=== PATIENT | male | born 1985 | race Caucasian/White ===

== ENCOUNTER → 2018-12-04 10:01 | Outpatient (CLI) | payer OTHER, MEDICAID, SELFPAY ==
[2018-12-04 11:17] LABS: C-Reactive Protein Quant < 0.5 mg/dL (<1.0)
[2018-12-04 11:21] LABS: Erythrocyte Sedimentation Rate 2 MM/HR (0-15)
== END ==
PROVIDERS: Visit Provider Physician Assistant
DX: R51 Headache (principal)
CPT/HCPCS: 36415; 85651; 86140

== ENCOUNTER 2018-12-04 10:27 | Emergency (ER) | payer OTHER, MEDICAID, SELFPAY ==
[2018-12-04 10:36] VITALS: BP 111/67; PULSE 52; RESP 13; TEMP 36.1; O2SAT 100
--- NOTE | 2018-12-04 11:02 | ED.HA ---
HPI - Headache <CLEMENTINE Reece - Last Filed: 12/05/18 00:13> General Chief Complaint: Headache Stated Complaint: migrane Time Seen by Provider: 12/04/18 11:01 Source: patient and family Mode of arrival: ambulatory Limitations: no limitations History of Present Illness HPI Narrative: This is a 33-year-old male, nonsmoker, who presents with left-sided headache every other day for last week. The patient was initially seen at walk-in clinic this morning had received IM injection of Toradol 15 mg and Tylenol 1000 mg. Had drawn ESR and CRP them refer to ED for further evaluation. The patient reports he had similar headaches before but not as severe. Reports mild photophobia, mild nausea, tender to touch on left side face. He reports at times his left temporal area felt swollen and bruise to his eyes or temporal area. When the headache is very severe he likes to rest in a dark room. He denies fever, chills, vomiting, rash, vision change. The patient has been taking 600 mg of ibuprofen, Tylenol 1000 mg around the clock with a headache. The patient denies his or family history of arthritis, aneurysm, or migraine headache. Related Data Home Medications Medication Instructions Recorded Confirmed acetaminophen 500 mg tablet 1,000 mg PO Q6H PRN 12/04/18 12/04/18 Previous Rx's Medication Instructions Recorded tramadol 50 mg PO DAILY #7 tab 12/04/18 Allergies Allergy/AdvReac Type Severity Reaction Status Date / Time No Known Drug Allergies Allergy Verified 12/04/18 09:46 Review of Systems <CLEMENTINE Reece - Last Filed: 12/05/18 00:13> Review of Systems General: See HPI HEENT: Reports L side headache, intermitent swelling and bruise to L temporal area. Denies sinus pain, ear pain, sore throat, difficulty swallowing, dizziness. Respiratory: Denies dyspnea, cough, wheezing, hemoptysis, sputum. Cardiovascular: Denies chest pain, palpitations, orthopnea, edema. Gastrointestinal: Mild nausea, vomiting, abdominal pain, diarrhea, constipation, melena. : Denies dysuria, frequency, incontinence, hematuria, urinary retention. Musculoskeletal: Denies weakness, joint pain or bony pain. Skin: Denies rash, skin lesions, or other. Neurologic: Denies weakness, numbness, change in speech, confusion, seizures, incoordination. Psychiatric: No concerning psychosocial issues. 12-point review of systems is negative except for those stated above. PFSH <CLEMENTINE Reece - Last Filed: 12/05/18 00:13> Medical History No significant past surgical history (Acute) Patient denies medical problems (Acute) Social History Smoking Status: Never smoker Social History Smoking Status: Never smoker Exam <CLEMENTINE Reece - Last Filed: 12/05/18 00:13> Narrative Exam Narrative: GEN: Alert, oriented x 3, well appearing and nourished, and in no acute distress. Neck: Trachea in midline. No JVD, non-tender without lymphadenopathy. No masses or thyroid megaly. Supple, non-tender and no meningeal signs. CARDIAC: Normal regular rate and rhythm without murmurs, gallops, or rubs. No chest wall tenderness. No peripheral edema, cyanosis or pallor. Capillary refill is less than 2 seconds. RESPIRATORY: Lungs are cleat to auscultate bilaterally. No cough, wheezes, rales, or rhonchi. No stridor, respiratory distress, increase work of breathing, or accessary muscle used. ABD: Abdomen soft, nontender and non-distended. No guarding or rebound tenderness to palpate. Bowel sounds are normal in all 4 quadrants. There is no palpable masses or organomegaly. EXT: Full painless ROM of all extremities with no loss of sensation, strength, effusion or edema. SKIN: Warm, dry, normal color for patient. No erythema, lesions or rash. NEUROLOGICAL: Alert and oriented to place, time and person. Sensation and motor function intact bilaterally. No facial droops, dysphasia, ataxia. PSYCHIATRIC: Good judgement and reason, without hallucinations, flat affect or no abnormal behaviors during the examination. Initial Vital Signs Initial Vital Signs: Vital Signs Temperature 97 F L 12/04/18 10:36 Pulse Rate 52 L 12/04/18 10:36 Respiratory Rate 13 12/04/18 10:36 Blood Pressure 111/67 12/04/18 10:36 Pulse Oximetry 100 12/04/18 10:36 [facility] Head: normal to inspection, normocephalic, atraumatic, No scalp lesion, No scalp tenderness, temporal artery tenderness and No periorbital ecchymosis Ears: hearing grossly normal bilaterally, external ears normal and TM's normal bilaterally Nose: external nose normal, nares normal and nasal mucous membranes and turbinates normal Face and sinus: normal facial exam, sinuses nontender and face symmetric Mouth: oral mucosae normal, tongue normal, oropharynx normal, moist mucous membranes and No trismus Teeth and gingiva: dentition normal Throat: posterior oropharynx normal, tonsils normal, uvula midline and no postnasal drainage <William Grant DO - Last Filed: 12/05/18 19:23> Initial Vital Signs Initial Vital Signs: Vital Signs Temperature 97 F L 12/04/18 10:36 Pulse Rate 52 L 12/04/18 10:36 Respiratory Rate 13 12/04/18 10:36 Blood Pressure 111/67 12/04/18 10:36 Pulse Oximetry 100 12/04/18 10:36 Course <CLEMENTINE Reece - Last Filed: 12/05/18 00:13> Orders Ordered: Discontinued Medications Ketorolac Tromethamine (Toradol) 15 mg IV NOW ONE Stop: 12/04/18 12:58 Last Admin: 12/04/18 13:13 Dose: 15 mg Tramadol HCl (Ultram) 50 mg PO NOW ONE Stop: 12/04/18 12:58 Last Admin: 12/04/18 13:13 Dose: 50 mg Vital Signs - 8 hr 12/04/18 10:36 Temperature 97 F L Pulse Rate 52 L Respiratory Rate 13 Blood Pressure 111/67 Pulse Oximetry 100 <William Grant DO - Last Filed: 12/05/18 19:23> Orders Ordered: Discontinued Medications Ketorolac Tromethamine (Toradol) 15 mg IV NOW ONE Stop: 12/04/18 12:58 Last Admin: 12/04/18 13:13 Dose: 15 mg Tramadol HCl (Ultram) 50 mg PO NOW ONE Stop: 12/04/18 12:58 Last Admin: 12/04/18 13:13 Dose: 50 mg Vital Signs - 8 hr 12/04/18 10:36 Temperature 97 F L Pulse Rate 52 L Respiratory Rate 13 Blood Pressure 111/67 Pulse Oximetry 100 MDM - Headache <CLEMENTINE Reece - Last Filed: 12/05/18 00:13> Differential Diagnosis Differential diagnosis: Likely migraine, headache and other (temporal arteritis , trigeminal neurolgia, ) Medical Records Attestation: I reviewed the patient's medical records. Lab Data Attestation: I reviewed the patient's lab results. Result diagrams: 12/04/18 11:05 12/04/18 11:05 Lab Results 12/04/18 12/04/18 Range/Units 11:05 11:05 WBC 4.2 L (4.5-11.0) X10^3/uL RBC 4.53 (4.5-5.9) X10^6/uL Hgb 14.1 (13.5-17.5) g/dL Hct 40.7 L (41-53) % MCV 90.0 (80-100) fL MCH 31.2 (26-34) PG MCHC 34.6 (30-36) % RDW 13.4 (11.6-14.8) % Plt Count 247 (150-400) X10^3/uL Neut % (Auto) 58.9 (50-75) % Lymph % (Auto) 34.0 (25-40) % [place] % (Auto) 5.6 (3-14) % Eos % (Auto) 1.2 L (2-4) % Baso % (Auto) 0.3 (0-2) % Neut # (Auto) 2500 (7328-0327) /uL Lymph # (Auto) 1400 (4215-2104) /uL [place] # (Auto) 200 (0-900) /uL Eos # (Auto) 0 (0-450) /uL Baso # (Auto) 0 (0-100) /uL Sodium 139 (137-145) mmol/L Potassium 4.1 (3.4-5.1) mmol/L Chloride 104 (98-107) mmol/L Carbon Dioxide 26 (22-32) mmol/L BUN 16 (9-20) mg/dL Creatinine 0.80 (0.66-1.25) mg/dL Estimated GFR > 60.0 (>60) mL/min BUN/Creatinine Ratio 20.0 (6-22) Glucose 107 H (70-100) mg/dL Calcium 9.5 (8.4-10.2) mg/dL MDM Narrative Medical decision making narrative: This is a 33 year old male was referred from walk-in clinic to ED for left-sided headache evaluation. He was initially evaluated and treated with Toradol 15 mg IM injection and Tylenol 1000 mg. CRP and ESR were drawn at the clinic. The patient has associated symptoms as left temporal area tenderness for a week every other day. Self-reported swelling in temporal area and bruise on left eye. He he had similar type of headache before but not as severe as this and tenderness to left side temporal with the swelling and bruise are new. Patient also had mild nausea, photophobia. His neurological symptoms were intact. There was tenderness to palpation left temporal but no bruises or swelling were noted during exam. Patient reports his headache was about 5/10 during initial encounter. He does not endorse family history of arthritis, migraine headache, aneurysm. The ESR and CRP came back within normal limit. CBC and BMP were unremarkable. The patient was medicated with a additional Toradol 15 mg IV and tramadol 50 mg p.o. The findings were shared with the patient and his family. He currently does not have primary healthcare manager. I discussed in length that he needs primary care provider for re-evaluation of his headache and possible a referral to headache specialist. I discussed in length the Tramadol is not for long-term use since this is a narcotic medication and patient may have rebound headaches. Patient was able to rest after 2 medication treatment and his headache had improved. All questions were answered and the patient and family agree with the treatment plan. [facility] health resources contact number has been provided. <William Grant, DO - Last Filed: 12/05/18 19:23> Lab Data Lab Results 12/04/18 12/04/18 Range/Units 11:05 11:05 WBC 4.2 L (4.5-11.0) X10^3/uL RBC 4.53 (4.5-5.9) X10^6/uL Hgb 14.1 (13.5-17.5) g/dL Hct 40.7 L (41-53) % MCV 90.0 (80-100) fL MCH 31.2 (26-34) PG MCHC 34.6 (30-36) % RDW 13.4 (11.6-14.8) % Plt Count 247 (150-400) X10^3/uL Neut % (Auto) 58.9 (50-75) % Lymph % (Auto) 34.0 (25-40) % [place] % (Auto) 5.6 (3-14) % Eos % (Auto) 1.2 L (2-4) % Baso % (Auto) 0.3 (0-2) % Neut # (Auto) 2500 (4676-6110) /uL Lymph # (Auto) 1400 (9891-9773) /uL [place] # (Auto) 200 (0-900) /uL Eos # (Auto) 0 (0-450) /uL Baso # (Auto) 0 (0-100) /uL Sodium 139 (137-145) mmol/L Potassium 4.1 (3.4-5.1) mmol/L Chloride 104 (98-107) mmol/L Carbon Dioxide 26 (22-32) mmol/L BUN 16 (9-20) mg/dL Creatinine 0.80 (0.66-1.25) mg/dL Estimated GFR > 60.0 (>60) mL/min BUN/Creatinine Ratio 20.0 (6-22) Glucose 107 H (70-100) mg/dL Calcium 9.5 (8.4-10.2) mg/dL Discharge Plan Departure Patient Disposition: Home Clinical Impression: Headache Qualifiers: Headache type: unspecified Headache chronicity pattern: unspecified pattern Intractability: not intractable Qualified Code(s): R51 - Headache Discharge Date/Time: 12/04/18 14:49 Interventions: ED Discharge Assessment Last Done: 12/04/18 14:49 Instructions: DI for Headache Activity Restrictions/Additional Instructions: You have been diagnosed with [ headache. Your blood tests look good for inflammatory markers, chemistry and complete blood count]. What to do: *Take your medications as directed. Please continue to take Tylenol and/or Motrin as needed for your headache and use Tramadol as needed for severe headache. This medication causes drowsiness so please do not drive, drink alcohol, operate heavy equipments. *Follow up with your primary care provider in 2-3 days, call for an appointment. Let them know you were seen in the ED and that we asked you to be seen in follow up. *Return to ED if you have any new, worsening, or concerning symptoms, such as [vision change, severe headache, fever, chills, unable to tolerate fluid, weakness to extremities, speech difficulty, chest pain, breathing difficulty, any acute concerns]. Prescriptions: New tramadol 50 mg tablet 50 mg PO DAILY Qty: 7 RF: 0 No Action acetaminophen [Tylenol Extra Strength] 500 mg tablet 1,000 mg PO Q6H PRN (Reason: pain) RF: 0 Referrals: [facility] [Outside] <William Grant DO - Last Filed: 12/05/18 19:23> Cosign ED Attending Yue Attestation: I was available for consultation during this patient's emergency department encounter
[2018-12-04 12:20] VITALS: BP 110/72; PULSE 50; RESP 15; O2SAT 100
[2018-12-04 13:12] LABS: Add Manual Diff / Slide Review NO; Basophils Absolute Auto 0 /uL (0-100); Basophils Percent Auto 0.3 % (0-2); Eosinophils Absolute Auto 0 /uL (0-450); Eosinophils Percent Auto 1.2 % (2-4); Hematocrit 40.7 % (41-53); Hemoglobin 14.1 g/dL (13.5-17.5); Lymphocytes Absolute Auto 1400 /uL (1100-4500); Mean Corpuscular HGB Conc 34.6 % (30-36); Mean Corpuscular Hemoglobin 31.2 PG (26-34); Monocytes Absolute Auto 200 /uL (0-900); Monocytes Percent Auto 5.6 % (3-14); Neutrophils Absolute Auto 2500 /uL (1500-7000); Neutrophils Percent Auto 58.9 % (50-75); Platelet Count 247 X10^3/uL (150-400); Red Blood Cell Count 4.53 X10^6/uL (4.5-5.9); Red Cell Distribution Width 13.4 % (11.6-14.8); White Blood Cell Count 4.2 X10^3/uL (4.5-11.0)
[2018-12-04] MEDS: TRAMADOL 50 MG TABLET PO (13:13)
[2018-12-04] MEDS: KETOROLAC 60 MG/2 ML VIAL 15 MG IV (13:13)
[2018-12-04 13:18] LABS: Blood Urea Nitrogen 16 mg/dL (9-20); Calcium 9.5 mg/dL (8.4-10.2); Carbon Dioxide 26 mmol/L (22-32); Chloride 104 mmol/L (98-107); Estimated Glomerular Filt Rate > 60.0 mL/min (>60); Glucose 107 mg/dL (70-100); HEMOLYSIS < 15 (0-50); Potassium 4.1 mmol/L (3.4-5.1); Sodium 139 mmol/L (137-145)
--- NOTE | 2018-12-05 00:10 | ED_ITS ---
HPI - Headache <CLEMENTINE Reece - Last Filed: 12/05/18 00:13> General Chief Complaint: Headache Stated Complaint: migrane Time Seen by Provider: 12/04/18 11:01 Source: patient and family Mode of arrival: ambulatory Limitations: no limitations History of Present Illness HPI Narrative: This is a 33-year-old male, nonsmoker, who presents with left- sided headache every other day for last week. The patient was initially seen at walk-in clinic this morning had received IM injection of Toradol 15 mg and Tylenol 1000 mg. Had drawn ESR and CRP them refer to ED for further evaluation. The patient reports he had similar headaches before but not as severe. Reports mild photophobia, mild nausea, tender to touch on left side face. He reports at times his left temporal area felt swollen and bruise to his eyes or temporal area. When the headache is very severe he likes to rest in a dark room. He denies fever, chills, vomiting, rash, vision change. The patient has been taking 600 mg of ibuprofen, Tylenol 1000 mg around the clock with a headache. The patient denies his or family history of arthritis, aneurysm, or migraine headache. Related Data Home Medications Medication Instructions Recorded Confirmed acetaminophen 500 mg tablet 1,000 mg PO Q6H PRN 12/04/18 12/04/18 Previous Rx's Medication Instructions Recorded tramadol 50 mg PO DAILY #7 tab 12/04/18 Allergies Allergy/AdvReac Type Severity Reaction Status Date / Time No Known Drug Allergies Allergy Verified 12/04/18 09:46 Review of Systems <CLEMENTINE Reece - Last Filed: 12/05/18 00:13> Review of Systems General: See HPI HEENT: Reports L side headache, intermitent swelling and bruise to L temporal area. Denies sinus pain, ear pain, sore throat, difficulty swallowing, d izziness. Respiratory: Denies dyspnea, cough, wheezing, hemoptysis, sputum. Cardiovascular: Denies chest pain, palpitations, orthopnea, edema. Gastrointestinal: Mild nausea, vomiting, abdominal pain, diarrhea, constipation, melena. : Denies dysuria, frequency, incontinence, hematuria, urinary retention. Musculoskeletal: Denies weakness, joint pain or bony pain. Skin: Denies rash, skin lesions, or other. Neurologic: Denies weakness, numbness, change in speech, confusion, seizures, incoordination. Psychiatric: No concerning psychosocial issues. 12-point review of systems is negative except for those stated above. PFSH <CLEMENTINE Reece - Last Filed: 12/05/18 00:13> Medical History No significant past surgical history (Acute) Patient denies medical problems (Acute) Social History Smoking Status: Never smoker Social History Smoking Status: Never smoker Exam <CLEMENTINE Reece - Last Filed: 12/05/18 00:13> Narrative Exam Narrative: GEN: Alert, oriented x 3, well appearing and nourished, and in no acute distress. Neck: Trachea in midline. No JVD, non-tender without lymphadenopathy. No masses or thyroid megaly. Supple, non-tender and no meningeal signs. CARDIAC: Normal regular rate and rhythm without murmurs, gallops, or rubs. No chest wall tenderness. No peripheral edema, cyanosis or pallor. Capillary refill is less than 2 seconds. RESPIRATORY: Lungs are cleat to auscultate bilaterally. No cough, wheezes, rales, or rhonchi. No stridor, respiratory distress, increase work of breathing, or accessary muscle used. ABD: Abdomen soft, nontender and non-distended. No guarding or rebound tenderness to palpate. Bowel sounds are normal in all 4 quadrants. There is no palpable masses or organomegaly. EXT: Full painless ROM of all extremities with no loss of sensation, strength, effusion or edema. SKIN: Warm, dry, normal color for patient. No erythema, lesions or rash. NEUROLOGICAL: Alert and oriented to place, time and person. Sensation and motor function intact bilaterally. No facial droops, dysphasia, ataxia. PSYCHIATRIC: Good judgement and reason, without hallucinations, flat affect or no abnormal behaviors during the examination. Initial Vital Signs Initial Vital Signs: Vital Signs Temperature 97 F L 12/04/18 10:36 Pulse Rate 52 L 12/04/18 10:36 Respiratory Rate 13 12/04/18 10:36 Blood Pressure 111/67 12/04/18 10:36 Pulse Oximetry 100 12/04/18 10:36 [facility] Head: normal to inspection, normocephalic, atraumatic, No scalp lesion, No scalp tenderness, temporal artery tenderness and No periorbital ecchymosis Ears: hearing grossly normal bilaterally, external ears normal and TM's normal bilaterally Nose: external nose normal, nares normal and nasal mucous membranes and turbinates normal Face and sinus: normal facial exam, sinuses nontender and face symmetric Mouth: oral mucosae normal, tongue normal, oropharynx normal, moist mucous membranes and No trismus Teeth and gingiva: dentition normal Throat: posterior oropharynx normal, tonsils normal, uvula midline and no postnasal drainage <DO Diomedes Rebolledo Last Filed: 12/05/18 19:23> Initial Vital Signs Initial Vital Signs: Vital Signs Temperature 97 F L 12/04/18 10:36 Pulse Rate 52 L 12/04/18 10:36 Respiratory Rate 13 12/04/18 10:36 Blood Pressure 111/67 12/04/18 10:36 Pulse Oximetry 100 12/04/18 10:36 Course <CLEMENTINE Reece - Last Filed: 12/05/18 00:13> Orders Ordered: Discontinued Medications Ketorolac Tromethamine (Toradol) 15 mg IV NOW ONE Stop: 12/04/18 12:58 Last Admin: 12/04/18 13:13 Dose: 15 mg Tramadol HCl (Ultram) 50 mg PO NOW ONE Stop: 12/04/18 12:58 Last Admin: 12/04/18 13:13 Dose: 50 mg Vital Signs - 8 hr 12/04/18 10:36 Temperature 97 F L Pulse Rate 52 L Respiratory Rate 13 Blood Pressure 111/67 Pulse Oximetry 100 <William Grant DO - Last Filed: 12/05/18 19:23> Orders Ordered: Discontinued Medications Ketorolac Tromethamine (Toradol) 15 mg IV NOW ONE Stop: 12/04/18 12:58 Last Admin: 12/04/18 13:13 Dose: 15 mg Tramadol HCl (Ultram) 50 mg PO NOW ONE Stop: 12/04/18 12:58 Last Admin: 12/04/18 13:13 Dose: 50 mg Vital Signs - 8 hr 12/04/18 10:36 Temperature 97 F L Pulse Rate 52 L Respiratory Rate 13 Blood Pressure 111/67 Pulse Oximetry 100 MDM - Headache <CLEMENTINE Reece - Last Filed: 12/05/18 00:13> Differential Diagnosis Differential diagnosis: Likely migraine, headache and other (temporal arteritis , trigeminal neurolgia, ) Medical Records Attestation: I reviewed the patient's medical records. Lab Data Attestation: I reviewed the patient's lab results. Result diagrams: 12/04/18 11:05 12/04/18 11:05 Lab Results 12/04/18 12/04/18 Range/Units 11:05 11:05 WBC 4.2 L (4.5-11.0) X10^3/uL RBC 4.53 (4.5-5.9) X10^6/uL Hgb 14.1 (13.5-17.5) g/dL Hct 40.7 L (41-53) % MCV 90.0 (80-100) fL MCH 31.2 (26-34) PG MCHC 34.6 (30-36) % RDW 13.4 (11.6-14.8) % Plt Count 247 (150-400) X10^3/uL Neut % (Auto) 58.9 (50-75) % Lymph % (Auto) 34.0 (25-40) % [place] % (Auto) 5.6 (3-14) % Eos % (Auto) 1.2 L (2-4) % Baso % (Auto) 0.3 (0-2) % Neut # (Auto) 2500 (1862-9745) /uL Lymph # (Auto) 1400 (1063-0293) /uL [place] # (Auto) 200 (0-900) /uL Eos # (Auto) 0 (0-450) /uL Baso # (Auto) 0 (0-100) /uL Sodium 139 (137-145) mmol/L Potassium 4.1 (3.4-5.1) mmol/L Chloride 104 (98-107) mmol/L Carbon Dioxide 26 (22-32) mmol/L BUN 16 (9-20) mg/dL Creatinine 0.80 (0.66-1.25) mg/dL Estimated GFR > 60.0 (>60) mL/min BUN/Creatinine Ratio 20.0 (6-22) Glucose 107 H (70-100) mg/dL Calcium 9.5 (8.4-10.2) mg/dL MDM Narrative Medical decision making narrative: This is a 33 year old male was referred from walk-in clinic to ED for left-sided headache evaluation. He was initially evaluated and treated with Toradol 15 mg IM injection and Tylenol 1000 mg. CRP and ESR were drawn at the clinic. The patient has associated symptoms as left temporal area tenderness for a week every other day. Self-reported swelling in temporal area and bruise on left eye. He he had similar type of headache before but not as severe as this and tenderness to left side temporal with the swelling and bruise are new. Patient also had mild nausea, photophobia. His neurological symptoms were intact. There was tenderness to palpation left temporal but no bruises or swelling were noted during exam. Patient reports his headache was about 5/10 during initial encounter. He does not endorse family history of arthritis, migraine headache, aneurysm. The ESR and CRP came back within normal limit. CBC and BMP were unremarkable. The patient was medicated with a additional Toradol 15 mg IV and tramadol 50 mg p.o. The findings were s hared with the patient and his family. He currently does not have primary care transitions manager. I discussed in length that he needs primary care provider for re- evaluation of his headache and possible a referral to headache specialist. I discussed in length the Tramadol is not for long-term use since this is a narcotic medication and patient may have rebound headaches. Patient was able to rest after 2 medication treatment and his headache had improved. All questions were answered and the patient and family agree with the treatment plan. [facility] health resources contact number has been provided. <William Grant, DO - Last Filed: 12/05/18 19:23> Lab Data Lab Results 12/04/18 12/04/18 Range/Units 11:05 11:05 WBC 4.2 L (4.5-11.0) X10^3/uL RBC 4.53 (4.5-5.9) X10^6/uL Hgb 14.1 (13.5-17.5) g/dL Hct 40.7 L (41-53) % MCV 90.0 (80-100) fL MCH 31.2 (26-34) PG MCHC 34.6 (30-36) % RDW 13.4 (11.6-14.8) % Plt Count 247 (150-400) X10^3/uL Neut % (Auto) 58.9 (50-75) % Lymph % (Auto) 34.0 (25-40) % [place] % (Auto) 5.6 (3-14) % Eos % (Auto) 1.2 L (2-4) % Baso % (Auto) 0.3 (0-2) % Neut # (Auto) 2500 (3456-3406) /uL Lymph # (Auto) 1400 (6577-7595) /uL [place]ye # (Auto) 200 (0-900) /uL Eos # (Auto) 0 (0-450) /uL Baso # (Auto) 0 (0-100) /uL Sodium 139 (137-145) mmol/L Potassium 4.1 (3.4-5.1) mmol/L Chloride 104 (98-107) mmol/L Carbon Dioxide 26 (22-32) mmol/L BUN 16 (9-20) mg/dL Creatinine 0.80 (0.66-1.25) mg/dL Estimated GFR > 60.0 (>60) mL/min BUN/Creatinine Ratio 20.0 (6-22) Glucose 107 H (70-100) mg/dL Calcium 9.5 (8.4-10.2) mg/dL Discharge Plan Departure Patient Disposition: Home Clinical Impression: Headache Qualifiers: Headache type: unspecified Headache chronicity pattern: unspecified pattern Intractability: not intractable Qualified Code(s): R51 - Headache Discharge Date/Time: 12/04/18 14:49 Interventions: ED Discharge Assessment Last Done: 12/04/18 14:49 Instructions: DI for Headache Activity Restrictions/Additional Instructions: You have been diagnosed with [ headache. Your blood tests look good for inflammatory markers, chemistry and complete blood count]. What to do: *Take your medications as directed. Please continue to take Tylenol and/or Motrin as needed for your headache and use Tramadol as needed for severe headache. This medication causes drowsiness so please do not drive, drink alcohol, operate heavy equipments. *Follow up with your primary care provider in 2-3 days, call for an appointment. Let them know you were seen in the ED and that we asked you to be seen in follow up. *Return to ED if you have any new, worsening, or concerning symptoms, such as [vision change, severe headache, fever, chills, unable to tolerate fluid, weakness to extremities, speech difficulty, chest pain, breathing difficulty, any acute concerns]. Prescriptions: New tramadol 50 mg tablet 50 mg PO DAILY Qty: 7 RF: 0 No Action acetaminophen [Tylenol Extra Strength] 500 mg tablet 1,000 mg PO Q6H PRN (Reason: pain) RF: 0 Referrals: [facility] [Outside] <William Grant DO - Last Filed: 12/05/18 19:23> Cosign ED Attending Yue Attestation: I was available for consultation during this patient's emergency department encounter
== END 2018-12-04 14:49 | disposition home or self-care (01) ==
PROVIDERS: Emergency Provider Nurse Practitioner Family
DX: R51 Headache (principal); H53.149 Visual discomfort, unspecified; R11.0 Nausea
CPT/HCPCS: 36415; 36591; 80048; 85025; 85651; 86140; 96374; 99282; 99283; J1885

== ENCOUNTER → 2018-12-27 17:43 | Outpatient (CLI) | payer OTHER, MEDICAID, SELFPAY ==
--- NOTE | 2018-12-27 17:47 | DI.MRI.S_ITS ---
PROCEDURE: MR HEAD/BRAIN WO CON INDICATIONS: chronic headache TECHNIQUE: Noncontrast axial T1 spin echo, axial T2 fast spin echo, sagittal and axial FLAIR, coronal T2 fast spin echo, axial gradient echo, axial diffusion and ADC through the brain. COMPARISON: None. FINDINGS: Image quality: Excellent. CSF Spaces: Basal cisterns are patent. No extra-axial fluid collections. Ventricles are normal in size and shape. Brain: No intracranial masses or hemorrhage. Park/white matter interface is normal. Brainstem appears normal. Diffusion-weighted images demonstrate no acute ischemic insult. No chronic ischemic insults. Normal intravascular flow voids are present. Skull and face: Calvarium has normal marrow signal. Orbits appear normal. Sinuses: There is a mild mucous retention cyst involving the inferior anterior left maxillary sinus. Sinuses and mastoids are otherwise clear. No abnormal mastoid air cell fluid can be seen. IMPRESSION: Unremarkable intracranial study, without an imaging explanation found for the patient's presenting history of headache. Dictated by: Ortiz Veloz M.D. on 12/27/2018 at 17:51 Approved by: Ortiz Veloz M.D. on 12/27/2018 at 17:52
== END ==
PROVIDERS: Visit Provider Hospitalist
DX: R51 Headache (principal)
CPT/HCPCS: 70551

== ENCOUNTER → 2020-02-17 16:19 | Outpatient (CLI) | payer OTHER, SELFPAY | PROVIDERS: PCP Student in an Organized Health Care Education/Training Program; Visit Provider Pediatrics | DX: J02.0 Streptococcal pharyngitis (principal) | CPT/HCPCS: 87081 ==

== ENCOUNTER → 2021-04-20 09:36 | Outpatient (CLI) | payer OTHER, SELFPAY ==
--- NOTE | 2021-04-20 09:38 | DI.RAD.S_ITS ---
PROCEDURE: XR ANKLE LT MIN 3V INDICATIONS: rolled ankle TECHNIQUE: 3 views of the ankle were acquired. COMPARISON: None. FINDINGS: Bones: No fractures or dislocations. Ankle mortise is normally aligned. No suspicious bony lesions. Soft tissues: No tibiotalar joint effusion. Achilles tendon appears normal. IMPRESSION: No acute osseous abnormality. Dictated by: Des Samuel M.D. on 04/20/2021 at 9:54 Approved by: Des Samuel M.D. on 04/20/2021 at 9:55
== END ==
PROVIDERS: PCP Student in an Organized Health Care Education/Training Program; Referring Provider Nurse Practitioner Family; Visit Provider Nurse Practitioner Family
DX: S99.912A Unspecified injury of left ankle, initial encounter (principal); X58.XXXA Exposure to other specified factors, initial encounter
CPT/HCPCS: 73610

== ENCOUNTER 2021-05-21 03:47 | Emergency (ER) | payer OTHER, MEDICAID, SELFPAY ==
[2021-05-21 03:50] VITALS: BP 145/90; PULSE 70; RESP 18; O2SAT 98; BMI 28.1
--- NOTE | 2021-05-21 04:02 | DI.CT.S_ITS ---
PROCEDURE: CT ABDOMEN PELVIS W CON INDICATIONS: left upper quadrant pain TECHNIQUE: After the administration of oral and IV contrast, axial sections were acquired from the lung bases to the pubic symphysis. Coronal and sagittal reformats were performed. For radiation dose reduction, the following was used: automated exposure control, adjustment of mA and/or kV according to patient size. COMPARISON: None. FINDINGS: Image quality: Excellent. Lung bases: Unremarkable. Heart: Heart is normal in size. ABDOMEN: Liver: No mass lesion. Gallbladder: Within normal limits without gallstones. Biliary ducts: No biliary ductal dilatation. Pancreas: No peripancreatic fat stranding or fluid collections to suggest pancreatitis. Spleen: Normal in size. Adrenal Glands: No adrenal nodules. Kidneys and Ureters: No hydronephrosis. There are small hypodense foci within the kidneys which are too small to characterize but likely represent cysts. Stomach and Bowel: There is possible mild gastric wall thickening but evaluation is limited by partial distention. Small and large bowel loops are normal in caliber and wall thickness. The appendix is normal in appearance. There are few colonic diverticula without acute diverticulitis. Peritoneum: No abnormal intraperitoneal fluid. No free air. Ventral Wall: No hernia. Abdominal Nodes: No retroperitoneal or mesenteric adenopathy by size criteria. Vessels: Aorta and inferior vena cava are normal in size. PELVIS: Pelvic Organs: Unremarkable. Bladder: Unremarkable. Pelvic Nodes: No enlarged lymph nodes. Miscellaneous: No inguinal hernias are seen. Bones: Visualized osseous structures demonstrate no suspicious focal lesions. IMPRESSION: 1. Possible mild gastric wall thickening, with evaluation limited by partial distention. Correlation is recommended clinically for possible gastritis. 2. No evidence of pancreatitis. 3. Mild colonic diverticulosis without acute diverticulitis. Dictated by: Michelet Christensen M.D. on 05/21/2021 at 8:48 Approved by: Michelet Christensen M.D. on 05/21/2021 at 9:04
--- NOTE | 2021-05-21 04:02 | ED.ABDPAIN ---
HPI - Abdominal Pain General Chief Complaint: Abdominal Pain Stated Complaint: left side abd pain x7 hours Time Seen by Provider: 05/21/21 04:02 Source: patient Mode of arrival: Ambulatory History of Present Illness HPI narrative: Patient is a healthy 36-year-old male who presents with left upper quadrant pain. He states started this evening around 9:00 p.m. a seems to be in 1 particular area but not reproducible with palpation. He did not take anything for pain. He has no nausea vomiting or diarrhea. He was feeling well earlier today. He moved out [employer] wheel which he may have injured himself but he is really does not think so. His thought his abdomen was slightly swollen in the left upper quadrant and he was sent to the ER for evaluation. Related Data Home Medications Medication Instructions Recorded Confirmed acetaminophen 500 mg tablet 1,000 mg PO Q6H PRN 12/04/18 04/20/21 (Tylenol Extra Strength) Previous Rx's Medication Instructions Recorded sumatriptan succinate 6 mg/0.5 mL 6 mg (0.5 mL) SUBCUT ONCE #1 ml 12/16/20 subcutaneous pen injector sumatriptan succinate 50 mg tablet 50 mg PO Q2-4H PRN #10 tab 03/15/21 Allergies Allergy/AdvReac Type Severity Reaction Status Date / Time No Known Drug Allergies Allergy Verified 04/20/21 09:39 Review of Systems Review of Systems Narrative: GENERAL: Denies chills, fatigue, malaise, fever, sweats, travel HEENT: Denies sinus pain, ear pain, sore throat, difficulty swallowing, neck pain RESPIRATORY: Denies dyspnea, cough, wheezing, hemoptysis, sputum. CARDIOVASCULAR: Denies chest pain, palpitations, orthopnea, edema GASTROINTESTINAL: See HPI : Denies dysuria, frequency, incontinence, hematuria, urinary retention, flank pain. MUSCULOSKELETAL: Denies weakness, joint pain, or bony pain SKIN: No rash, no erythema, no pruritus NEUROLOGIC: Denies weakness, dizziness, headache, numbness, change in speech, confusion PSYCHIATRIC: No concerning psychosocial issues. 12 point review of systems is negative except for those stated above and HPI Patient History Medical History (Updated 05/21/21 @ 04:59 by Caprice Steel DO) Patient denies medical problems Surgical History No significant past surgical history Social History Smoking Status: Never smoker Smoking Status: Never smoker Substance Use Type: does not use Exam Initial Vital Signs Initial Vital Signs: Vital Signs Pulse Rate 70 05/21/21 03:50 Respiratory Rate 18 05/21/21 03:50 Blood Pressure 145/90 H 05/21/21 03:50 Pulse Oximetry 98 05/21/21 03:50 GENERAL: Well-appearing, well-nourished and in no acute distress. HEENT: Head atraumatic,EOMI, pupils reactive, face symmetric, moist mucous membranes CARDIOVASCULAR: Regular rate and rhythm without murmurs, rubs or gallops. RESPIRATORY: Breath sounds equal bilaterally, no wheezes rales or rhonchi. No rib pain no pain ABDOMEN: Soft, mild tenderness in left upper quadrant no guarding or rebound negative for splenomegaly or hepatomegaly. No epigastric pain negative Davalos sign. : No CVA tenderness EXTREMITIES: Normal range of motion, no clubbing or edema. Neurovascularly intact NEUROLOGICAL: Alert and oriented x4.Normal gait and speech. SKIN: Warm, dry, no laceration, no petechiae, no rashes or lesions. Course Orders Ordered: ED Orders 05/21/21 04:02 CT abdomen pelvis w con Stat 05/21/21 04:03 Complete Blood Count AUTO DIFF Stat Comprehensive Metabolic Panel Stat Lipase Stat Discontinued Medications Ketorolac Tromethamine (Ketorolac 30 Mg/Ml Vial) 30 mg IV NOW ONE Stop: 05/21/21 04:03 Last Admin: 05/21/21 04:38 Dose: 30 mg Documented by: Vital Signs Vital signs: Vital Signs - 8 hr 05/21/21 03:50 Pulse Rate 70 Respiratory Rate 18 Blood Pressure 145/90 H Pulse Oximetry 98 MDM - Abdominal Pain Lab Data Result diagrams: 05/21/21 04:20 05/21/21 04:20 Labs: Lab Results 05/21/21 05/21/21 Range/Units 04:20 04:20 WBC 6.5 (4.5-11.0) X10^3/uL RBC 4.63 (4.5-5.9) X10^6/uL Hgb 14.5 (13.5-17.5) g/dL Hct 41.9 (41-53) % MCV 90.6 (80-100) fL MCH 31.3 (26-34) PG MCHC 34.5 (30-36) % RDW 13.2 (11.6-14.8) % Plt Count 262 (150-400) X10^3/uL Neut % (Auto) 55.2 (50-75) % Lymph % (Auto) 33.6 (25-40) % Clayton % (Auto) 9.0 (3-14) % Eos % (Auto) 1.9 L (2-4) % Baso % (Auto) 0.3 (0-2) % Neut # (Auto) 3600 (6360-5659) /uL Lymph # (Auto) 2200 (1451-2172) /uL Clayton # (Auto) 600 (0-900) /uL Eos # (Auto) 100 (0-450) /uL Baso # (Auto) 0 (0-100) /uL Sodium 140 (137-145) mmol/L Potassium 4.0 (3.4-5.1) mmol/L Chloride 106 (98-107) mmol/L Carbon Dioxide 27 (22-32) mmol/L BUN 15 (9-20) mg/dL Creatinine 0.91 (0.66-1.25) mg/dL Estimated GFR > 60.0 (>60) mL/min BUN/Creatinine Ratio 16.5 (6-22) Glucose 112 H (70-100) mg/dL Calcium 9.4 (8.4-10.2) mg/dL Total Bilirubin 0.5 (0.2-1.3) mg/dL AST 32 (17-59) IU/L ALT 66 H (<50) IU/L Alkaline Phosphatase 57 (38-126) U/L Total Protein 7.2 (6.3-8.2) g/dL Albumin 4.5 (3.5-5.0) g/dL Globulin 2.7 (1.7-4.1) g/dL Albumin/Globulin Ratio 1.7 (1.0-2.8) Lipase 52 (23-300) U/L Imaging Data CT scan - abdomen/pelvis: Radiologist's Impression: Preliminaryr eport: No evidence of colitis diverticulitis bowel obstruction, obstructive uropathy or acute appendicitis. No CT findings to explain left upper quadrant pain MDM Narrative Medical decision making narrative: Patient blood work and CT scan are overall reassuring. 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 Pain is better with Toradol. Discharge Plan Departure Patient Disposition: Home Clinical Impression: Acute costochondritis Instructions: DI for Costochondritis Activity Restrictions/Additional Instructions: *You have been diagnosed with possible inflammation between ribs *What to do: At this time workup is negative. Probably a musculoskeletal strain. Recommend ice or heat whichever makes it feels better and pain control *Continue to take medications as directed Ibuprofen 600 mg every 6-8 hours if needed for mild to moderate pain Tylenol 650 mg every 4-6 hours if needed [id number] pain *Follow up with your primary care provider in 2-3 days or call [phone] *Return to ER if you should have increased pain, shortness of breath nausea vomiting or any new, worsening or concerning symptoms Prescriptions: No Action acetaminophen [Tylenol Extra Strength] 500 mg tablet 1,000 mg PO Q6H PRN (Reason: pain) 0RF sumatriptan succinate 6 mg/0.5 mL pen injector 6 mg SUBCUT ONCE Qty: 1 11RF Rx Instructions: This is for cluster headaches. sumatriptan succinate 50 mg tablet 50 mg PO Q2-4H PRN (Reason: migraine headache) Qty: 10 11RF Rx Instructions: until response; not to exceed 4 doses in a 24 hour period Referrals: Xander Ricci MD [Primary Care Provider] -
[2021-05-21 04:35] LABS: Add Manual Diff / Slide Review NO; Basophils Absolute Auto 0 /uL (0-100); Basophils Percent Auto 0.3 % (0-2); Eosinophils Absolute Auto 100 /uL (0-450); Eosinophils Percent Auto 1.9 % (2-4); Hematocrit 41.9 % (41-53); Hemoglobin 14.5 g/dL (13.5-17.5); Lymphocytes Absolute Auto 2200 /uL (1100-4500); Lymphocytes Percent Auto 33.6 % (25-40); Mean Corpuscular HGB Conc 34.5 % (30-36); Mean Corpuscular Hemoglobin 31.3 PG (26-34); Mean Corpuscular Volume 90.6 fL (80-100); Monocytes Absolute Auto 600 /uL (0-900); Neutrophils Absolute Auto 3600 /uL (1500-7000); Neutrophils Percent Auto 55.2 % (50-75); Platelet Count 262 X10^3/uL (150-400); Red Blood Cell Count 4.63 X10^6/uL (4.5-5.9); Red Cell Distribution Width 13.2 % (11.6-14.8); White Blood Cell Count 6.5 X10^3/uL (4.5-11.0)
[2021-05-21] MEDS: KETOROLAC 30 MG/ML VIAL IV (04:38)
[2021-05-21 04:43] LABS: Alanine Aminotransferase 66 IU/L (<50); Albumin 4.5 g/dL (3.5-5.0); Albumin Globulin Ratio 1.7 (1.0-2.8); Alkaline Phosphatase 57 U/L (38-126); Aspartate Aminotransferase 32 IU/L (17-59); BUN Creatinine Ratio 16.5 (6-22); Bilirubin Total 0.5 mg/dL (0.2-1.3); Blood Urea Nitrogen 15 mg/dL (9-20); Calcium 9.4 mg/dL (8.4-10.2); Carbon Dioxide 27 mmol/L (22-32); Chloride 106 mmol/L (98-107); Estimated Glomerular Filt Rate > 60.0 mL/min (>60); Globulin 2.7 g/dL (1.7-4.1); Glucose 112 mg/dL (70-100); HEMOLYSIS 30 (0-50); Lipase 52 U/L (23-300); Sodium 140 mmol/L (137-145); Total Protein 7.2 g/dL (6.3-8.2)
[2021-05-21 05:10] VITALS: BP 136/74; PULSE 74; O2SAT 98
--- NOTE | 2021-05-21 05:12 | PC.NURSE ---
I assisted with the student nurse and agree with her assessments.
== END 2021-05-21 05:10 | disposition home or self-care (01) ==
PROVIDERS: Emergency Provider Emergency Medicine; PCP Student in an Organized Health Care Education/Training Program
DX: M94.0 Chondrocostal junction syndrome [Tietze] (principal)
CPT/HCPCS: 36415; 74177; 80053; 83690; 85025; 96374; 99284; J1885; Q9967

== ENCOUNTER 2021-12-20 18:06 | Emergency (ER) | payer OTHER, MEDICAID, SELFPAY ==
[2021-12-20 18:17] VITALS: PULSE 69; RESP 20; TEMP 36.8; O2SAT 100
--- NOTE | 2021-12-20 19:54 | ED_ITS ---
HPI - General Adult General Chief complaint: Urogenital-Male Stated complaint: Vasectomy, discomfort Time Seen by Provider: 12/20/21 19:44 Source: patient Mode of arrival: Ambulatory History of Present Illness HPI narrative: Otherwise healthy 36-year-old gentleman who is now 5 days located vasectomy. He notes that on day 3 he did a bit more movement and lifting then he likely should have. Today he is noticing increased pain in his left testicle and is concerned that the swelling is more than is appropriate and wants to make sure that he has not injured himself. He has been using ibuprofen and Tylenol and finds that the pain is still significant enough that he is definitely not ready to return to usual activity. He reports no fever, cough, chills. He is able to void and stool without difficulty. No abdominal pain, chest pain or palpitations. Related Data Home Medications Medication Instructions Recorded Confirmed acetaminophen 500 mg tablet 1,000 mg PO Q6H PRN pain 12/04/18 12/16/21 (Tylenol Extra Strength) Previous Rx's Medication Instructions Recorded sumatriptan succinate 6 mg/0.5 mL 6 mg (0.5 mL) SUBCUT ONCE #1 mL 12/16/20 subcutaneous pen injector sumatriptan succinate 50 mg tablet 50 mg PO Q2-4H PRN migraine 03/15/21 headache #10 tabs alprazolam 0.5 mg tablet 0.5 mg PO DAILY #1 tab 11/03/21 oxycodone 5 mg tablet 5 mg PO Q4H PRN pain #1 tab 11/03/21 oxycodone-acetaminophen 5 mg-325 1 tab PO Q6H PRN pain #10 tabs 12/20/21 mg tablet Allergies Allergy/AdvReac Type Severity Reaction Status Date / Time No Known Drug Allergies Allergy Verified 12/16/21 15:21 Review of Systems Review of Systems Narrative: Remainder of complete review of systems is otherwise unremarkable except for that included in the HPI. Patient History Medical History Encounter for sterilization Patient denies medical problems Sterilization consult Surgical History (Updated 12/20/21 @ 22:17 by Shelley Rose MD) H/O vasectomy No significant past surgical history Social History Smoking Status: Never smoker Smoking Status: Never smoker Substance Use Type: does not use Exam Initial Vital Signs Initial Vital Signs: Vital Signs Temperature 98.2 F 12/20/21 18:17 Pulse Rate 69 12/20/21 18:17 Respiratory Rate 20 12/20/21 18:17 Pulse Oximetry 100 12/20/21 18:17 Oxygen Delivery Method 12/20/21 18:17 General: Alert appropriate in no acute distress Respiratory: Able to speak in full sentences, no obvious respiratory distress Skin: No obvious rashes, warm and dry Neurologic: Grossly intact no obvious asymmetries or abnormalities Psych: appropriate insight and affect, cooperative Genitals: Course Orders Ordered: Discontinued Medications Ibuprofen (Ibuprofen 400 Mg Tablet) 400 mg PO NOW ONE Stop: 12/20/21 19:57 Last Admin: 12/20/21 20:01 Dose: 400 mg Documented By: YVON Oxycodone/Acetaminophen (Oxycodone/Acetaminophen 5/325 Tablet) 1 tab PO NOW ONE Stop: 12/20/21 19:57 Last Admin: 12/20/21 20:01 Dose: 1 tab Documented By: YVON Vital Signs Vital signs: Vital Signs - 8 hr 12/20/21 18:17 12/20/21 20:06 Temperature 98.2 F Pulse Rate 69 72 Respiratory Rate 20 18 Blood Pressure 137/75 Pulse Oximetry 100 100 Oxygen Delivery Method Room Air Room Air Medical Decision Making [facility] Narrative Medical decision making narrative: 36-year-old gentleman postop uncomplicated cecectomy. Prior history of a left varicocele increasing pain and tenderness on the left side. Exam is reassuring and completely within expected limits for postoperative care. I am not concerned with infection, testicular torsion, other postoperative complications. Reassurance is given, questions are answered and he is safe for home discharge Discharge Plan Departure Patient Disposition: Home Clinical Impression: Post-op pain Instructions: DI for Vasectomy Activity Restrictions/Additional Instructions: Thank you for coming in today Your vasectomy does seem to be healing very appropriately. The swelling and bruising is as expected I would recommend continued limited activity and lifting, ice, good support for the entire area. Using 400 mg of ibuprofen (2 [id number] pills) and 1 Tylenol every 6 hours can be very helpful in controlling pain. For severe pain using 400 mg of ibuprofen and 1 Percocet can be helpful. 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 If you have worsening symptoms or new concerns please feel free to return to the emergency department or touch base with the urology office. Prescriptions: New oxycodone-acetaminophen 5-325 mg tablet 1 tab PO Q6H PRN (Reason: pain) Qty: 10 0RF No Action acetaminophen [Tylenol Extra Strength] 500 mg tablet 1,000 mg PO Q6H PRN (Reason: pain) sumatriptan succinate 6 mg/0.5 mL pen injector 6 mg SUBCUT ONCE Qty: 1 11RF Rx Instructions: This is for cluster headaches. sumatriptan succinate 50 mg tablet 50 mg PO Q2-4H PRN (Reason: migraine headache) Qty: 10 11RF Rx Instructions: until response; not to exceed 4 doses in a 24 hour period oxycodone 5 mg tablet 5 mg PO Q4H PRN (Reason: pain) Qty: 1 0RF Rx Instructions: Take tablet 1-2 hours before scheduled procedure as directed. alprazolam 0.5 mg tablet 0.5 mg PO DAILY Qty: 1 0RF Rx Instructions: Take tablet 1-2 hours before scheduled procedure as directed. Referrals: Xander Ricci MD [Primary Care Provider] - Visit Report Forms: Patient Portal/API
[2021-12-20] MEDS: IBUPROFEN 400 MG TABLET PO (20:01)
[2021-12-20] MEDS: OXYCODONE/ACETAMINOPHEN 5/325 TABLET 1 TAB PO (20:01)
--- NOTE | 2021-12-20 20:05 | PC.NURSE ---
swelling and bruising to testicular region, s/p vasectomy 5 days ago.
[2021-12-20 20:06] VITALS: BP 137/75; PULSE 72; RESP 18; O2SAT 100
== END 2021-12-20 20:06 | disposition home or self-care (01) ==
PROVIDERS: Emergency Provider Emergency Medicine; PCP Student in an Organized Health Care Education/Training Program
DX: G89.18 Other acute postprocedural pain (principal)
CPT/HCPCS: 99283

== ENCOUNTER 2021-12-24 10:00 | Emergency (ER) | payer OTHER, MEDICAID, SELFPAY ==
[2021-12-24 10:08] VITALS: BP 153/81; PULSE 73; RESP 16; TEMP 36.6; O2SAT 100; BMI 26.6
--- NOTE | 2021-12-24 10:10 | ED.MALEGU ---
HPI - Male Genitourinary General Chief complaint: Urogenital-Male Stated complaint: recent Vesectomy, has lump now something not right Time Seen by Provider: 12/24/21 10:07 Source: patient and old records reviewed Mode of arrival: Ambulatory Limitations: no limitations History of Present Illness HPI Narrative: This is a 36-year-old male with history of migraines and recent vasectomy who presents with complaint of scrotal pain and swollen lump on the right testicle. Patient is status post vasectomy as of 12/16/2021. Was seen on the here for postop pain of the left testicle patient's exam per report was consistent with being postoperative for vasectomy. He states since then pain has improved he has some mild pain but is no longer taking Tylenol or ibuprofen regularly and has occasionally icing. He was in the shower in the last day and noticed that there was a lump on the right that is a little bit tender higher up in the scrotal sac. Patient states he did not appreciated before but states he did not really look at the area or touch the area very much postoperatively. Patient denies fevers or chills. Denies any abdominal or pelvic pain. No dysuria urgency or frequency. Was constipated but that has improved. Patient states he has not appreciated any redness, skin changes or bruising but states he was not looking very closely that area recently. He does use a Triptan seasonally for cluster migraines, he denies other medical issues. No other prior surgeries. No known drug allergies. Related Data Home Medications Medication Instructions Recorded Confirmed acetaminophen 500 mg tablet 1,000 mg PO Q6H PRN pain 12/04/18 12/24/21 (Tylenol Extra Strength) Previous Rx's Medication Instructions Recorded sumatriptan succinate 6 mg/0.5 mL 6 mg (0.5 mL) SUBCUT ONCE #1 mL 12/16/20 subcutaneous pen injector sumatriptan succinate 50 mg tablet 50 mg PO Q2-4H PRN migraine 03/15/21 headache #10 tabs alprazolam 0.5 mg tablet 0.5 mg PO DAILY #1 tab 11/03/21 oxycodone 5 mg tablet 5 mg PO Q4H PRN pain #1 tab 11/03/21 oxycodone-acetaminophen 5 mg-325 1 tab PO Q6H PRN pain #10 tabs 12/20/21 mg tablet Allergies Allergy/AdvReac Type Severity Reaction Status Date / Time No Known Drug Allergies Allergy Verified 12/24/21 10:11 Review of Systems Review of Systems ROS Unobtainable: All systems reviewed & are unremarkable except as noted in HPI and below Patient History Medical History Encounter for sterilization Patient denies medical problems Sterilization consult Surgical History H/O vasectomy No significant past surgical history Social History Smoking Status: Never smoker Smoking Status: Never smoker Substance Use Type: does not use Exam Narrative Exam Narrative: GENERAL: Alert and oriented x three, male in mild distress. HEENT: Head normocephalic, atraumatic, EOMI, pupils reactive, face symmetric, moist mucous membranes NECK: Supple, full range of motion CARDIOVASCULAR: Regular rate and rhythm without murmurs, rubs or gallops. RESPIRATORY: Breath sounds equal bilaterally, no wheezes rales or rhonchi. ABDOMEN: Soft, nontender. Normoactive bowel sounds all 4 quadrants. No guarding or rebound, rigidity, no mass : No CVA tenderness. Male: normal external examination, no penile discharge or lesions, testicles non-tender patient has small less than 1 cm area of fullness that is very mildly tender consistent with either scar tissue or possibly seroma, the area is full semi nodular but not hard, it is not fluctuant there is no erythema or skin changes appreciated it is on the right upper scrotum along the lateral edge consistent with where vasectomy would have been performed. I am unable to visualize an obvious incision and both sides appear to have healed well., cremasteric reflex intact, no inguinal hernias noted. No ecchymosis or other skin changes noted. EXTREMITIES: Normal range of motion, no clubbing or edema. Neurovascularly intact NEUROLOGICAL: Cranial nerves II through XII grossly intact. Moving all extremities SKIN: Warm, dry, no petechiae, no rashes or lesions. Initial Vital Signs Initial Vital Signs: Vital Signs Temperature 97.8 F 12/24/21 10:08 Pulse Rate 73 12/24/21 10:08 Respiratory Rate 16 12/24/21 10:08 Blood Pressure 153/81 H 12/24/21 10:08 Pulse Oximetry 100 12/24/21 10:08 Oxygen Delivery Method 12/24/21 10:08 Course Orders Ordered: ED Orders 12/24/21 10:20 US scrotum Stat Vital Signs Vital signs: Vital Signs - 8 hr 12/24/21 10:08 Temperature 97.8 F Pulse Rate 73 Respiratory Rate 16 Blood Pressure 153/81 H Pulse Oximetry 100 Oxygen Delivery Method Room Air MDM - Male Genitourinary Imaging Data scrotum US: Radiologist's Impression: [address] [address] Ultrasound Report Signed Patient: Gilbert Cavazos MR#: [id number] : 1985 Acct:[id number] Age/Sex: 36 / M Date of Service: 12/24/21 Loc: ED Accession Number: [id number] ?? Procedure: US scrotum Ordering Provider: Antoinette Hampton D.O. PROCEDURE:? US SCROTUM ? INDICATIONS:? right lump upper testicle.? s/p vasectomy 12/16, mild tender ? TECHNIQUE:? Real-time scanning was performed of the scrotum and testicles, with image documentation.? Color and pulse Doppler interrogation was performed of both testicles.? ? COMPARISON:? None. ? FINDINGS:? ? Superior and posterolateral to the right testicle there is an approximately 6 millimeter linear brightly echogenic structure which may represent a surgical clip or suture material.? There is mixed echogenicity complicated fluid surrounding this structure.? Both testicles normal in appearance with normal blood flow.? There is no hydrocele or varicocele. ? IMPRESSION:? Linear 6 millimeter brightly echogenic structure presumably representing a surgical clip or suture material adjacent to the right testicle.? Surrounding mixed echogenicity fluid is nonspecific.? ? Dictated by: Ge Saravia M.D. on 12/24/2021 at 10:54 ? ? Approved by: Ge Saravia M.D. on 12/24/2021 at 11:00?? [facility] Narrative Medical decision making narrative: This is a 36-year-old male status post vasectomy postoperative day 8, patient has had 3 visits 1 at the family practice office today for scrotal pain he had outpatient ultrasound ordered but presents here. Patient's exam is reassuring I suspect he either has some scar tissue or small amount of seroma still present at the site his exam is otherwise reassuring but in the setting of 3 visits recently in the past week and a half ultrasound of the scrotum was ordered. This shows 6 mm echogenic structure presumably a surgical clip in the right testicle with some mixed echogenicity fluid surrounding, this is consistent with patient's note from urology they did use clips for patient's vasectomy. Patient has f/u this coming Monday in urology office with Dr. Galeano. Return precautions discussed. Discharge Plan Departure Patient Disposition: Home Clinical Impression: Lump in scrotum Activity Restrictions/Additional Instructions: Your imaging today does show a small linear area in the right testicle that is likely the surgical clip used during your surgery. There is no obvious sign of infection, hydrocele or varicocele. This will likely continue to improve but you may continue to feel a small lump or area of fullness you can follow-up with urology for recheck in the next couple weeks if you prefer. Please return for fevers, rapidly worsening pain, increasing swelling, redness, fluctuance or fluid draining or other new or concerning symptoms. Prescriptions: No Action acetaminophen [Tylenol Extra Strength] 500 mg tablet 1,000 mg PO Q6H PRN (Reason: pain) sumatriptan succinate 6 mg/0.5 mL pen injector 6 mg SUBCUT ONCE Qty: 1 11RF Rx Instructions: This is for cluster headaches. sumatriptan succinate 50 mg tablet 50 mg PO Q2-4H PRN (Reason: migraine headache) Qty: 10 11RF Rx Instructions: until response; not to exceed 4 doses in a 24 hour period oxycodone-acetaminophen 5-325 mg tablet 1 tab PO Q6H PRN (Reason: pain) Qty: 10 0RF oxycodone 5 mg tablet 5 mg PO Q4H PRN (Reason: pain) Qty: 1 0RF Rx Instructions: Take tablet 1-2 hours before scheduled procedure as directed. alprazolam 0.5 mg tablet 0.5 mg PO DAILY Qty: 1 0RF Rx Instructions: Take tablet 1-2 hours before scheduled procedure as directed. Referrals: Xander Ricci MD [Primary Care Provider] - Olivier Henao MD [Physician] - Visit Report Forms: Patient Portal/API
--- NOTE | 2021-12-24 10:20 | DI.US.S_ITS ---
PROCEDURE: US SCROTUM INDICATIONS: right lump upper testicle. s/p vasectomy 12/16, mild tender TECHNIQUE: Real-time scanning was performed of the scrotum and testicles, with image documentation. Color and pulse Doppler interrogation was performed of both testicles. COMPARISON: None. FINDINGS: Superior and posterolateral to the right testicle there is an approximately 6 millimeter linear brightly echogenic structure which may represent a surgical clip or suture material. There is mixed echogenicity complicated fluid surrounding this structure. Both testicles normal in appearance with normal blood flow. There is no hydrocele or varicocele. IMPRESSION: Linear 6 millimeter brightly echogenic structure presumably representing a surgical clip or suture material adjacent to the right testicle. Surrounding mixed echogenicity fluid is nonspecific. Dictated by: Ge Saravia M.D. on 12/24/2021 at 10:54 Approved by: Ge Saravia M.D. on 12/24/2021 at 11:00
== END 2021-12-24 11:35 | disposition home or self-care (01) ==
PROVIDERS: Emergency Provider Emergency Medicine; PCP Student in an Organized Health Care Education/Training Program
DX: N50.89 Other specified disorders of the male genital organs (principal); Z98.52 Vasectomy status
CPT/HCPCS: 76870; 93975; 99281; 99283

== ENCOUNTER → 2023-03-22 16:19 | Outpatient (CLI) | payer OTHER, MEDICAID, SELFPAY ==
--- NOTE | 2023-03-22 16:20 | DI.US.S_ITS ---
PROCEDURE: US SCROTUM INDICATIONS: LEFT TESTICULAR PAIN TECHNIQUE: Real-time scanning was performed of the scrotum and testicles, with image documentation. Color and pulse Doppler interrogation was performed of both testicles. COMPARISON: [facility], , US SCROTUM, 12/24/2021, 10:34. FINDINGS: Right: Testicle is normal in size at 4.3 x 3.3 x 1.2 cm, and homogenous in echotexture. Epididymis is normal in overall size and morphology. No hydrocele or varicoceles. Overlying scrotal skin is normal in thickness. Previously described linear hyperechoic structure within right scrotal wall is again seen which may represent a clip related to prior vasectomy. Left: Testicle is normal in size at 4.3 x 2.9 x 1.9 cm, and homogeneous in echotexture. Epididymis is normal in overall size and morphology. Tiny 2 mm left epididymal head cyst is seen. No hydrocele or varicoceles. Overlying scrotal skin is normal in thickness. Doppler: Color and pulse Doppler demonstrate normal and symmetric arterial flow in both testicles. Mildly increased bilateral epididymal vascularity is seen. IMPRESSION: 1. Normal appearing bilateral testes. No evidence of testicular torsion. 2. Mildly increased bilateral epididymal vascularity concerning for mild epididymitis. 3. Again noted is linear hyperechoic structure within right scrotal wall which may represent surgical clips from prior vasectomy. Clinical correlation is recommended. Dictated by: Jorden Bello M.D. on 03/23/2023 at 9:39 Approved by: Jorden Bello M.D. on 03/23/2023 at 9:42
== END ==
PROVIDERS: PCP Family Medicine; Referring Provider Family Medicine; Visit Provider Family Medicine
DX: N50.812 Left testicular pain (principal); Z98.52 Vasectomy status
CPT/HCPCS: 76870; 93975

== ENCOUNTER → 2024-04-28 10:33 | Outpatient (CLI) | payer BC, SELFPAY ==
[2024-04-28 11:23] LABS: Influenza A - CEPHEID Flu A NEGATIVE (NEGATIVE); Influenza B - CEPHEID Flu B NEGATIVE (NEGATIVE); Respiratory Syncytial Virus Negative (Negative)
[2024-04-28 11:25] LABS: COVID-19 CEPHEID 4-PLEX PCR Negative (Negative)
== END ==
PROVIDERS: PCP Family Medicine; Visit Provider Physician Assistant Medical
DX: J02.9 Acute pharyngitis, unspecified (principal); R05.1 Acute cough
CPT/HCPCS: 0241U; 87070; 87147

== ENCOUNTER → 2025-03-18 16:09 | Outpatient (CLI) | payer BC, SELFPAY | PROVIDERS: PCP Family Medicine; Visit Provider Physician Assistant | DX: N50.82 Scrotal pain (principal) | CPT/HCPCS: 87086 ==

== ENCOUNTER → 2025-03-25 15:57 | Outpatient (CLI) | payer BC, SELFPAY ==
--- NOTE | 2025-03-25 15:58 | DI.US.S_ITS ---
PROCEDURE: US SCROTUM INDICATIONS: pain to left testicle, bump yesterday at posterior TECHNIQUE: Real-time scanning was performed of the scrotum and testicles, with image documentation. Color and pulse Doppler interrogation was performed of both testicles. COMPARISON: [facility], [place], US SCROTUM, 03/22/2023, 16:59. FINDINGS: Right: Testicle is normal in size at 4.0 x 2.3 x 3.8 cm, and homogenous in echotexture. Epididymis is normal in overall size and morphology. No hydrocele or varicoceles. Overlying scrotal skin is normal in thickness. Left: Testicle is normal in size at 4.0 x 2.5 x 3.2 cm, and homogeneous in echotexture. Epididymis is normal in overall size and morphology. No hydrocele or varicoceles. Overlying scrotal skin is normal in thickness. Doppler: Color and pulse Doppler demonstrate normal and symmetric arterial flow in both testicles. IMPRESSION: Normal testicular ultrasound. Dictated by: Ryland Flowers M.D. on 03/25/2025 at 16:50 Approved by: Ryland Flowers M.D. on 03/25/2025 at 16:54
== END ==
LOC: US 15:58
PROVIDERS: PCP Family Medicine; Referring Provider Physician Assistant; Visit Provider Physician Assistant
DX: N45.1 Epididymitis (principal)
CPT/HCPCS: 76870; 93975